=== PATIENT | female | born 1965 | race Caucasian/White ===

== ENCOUNTER 2018-03-03 13:17 | Emergency (ER) | payer OTHER ==
[2018-03-03 13:26] VITALS: BP 131/81; PULSE 89; TEMP 98.4; BMI 28.9
--- NOTE | 2018-03-03 13:56 | PDOC ---
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 The patient states she was removing a glass pitcher from the cabinet when it slipped and shattered on the counter. She reports cutting her hand accidentally on one of the pieces of broken glass. She endorses mild tingling in her distal thumb, index, and middle fingers. Denies decreased movement or pain other than at the site of the laceration. The patient denies recent fevers/chills, dizziness, SOB, N/V/C/D; denies history of DM, HTN, or smoking. 03/03/18 14:04 Past History - Past Medical History Allergies/Adverse Reactions: Allergies Allergy/AdvReac Type Severity Reaction Status Date / Time apple Allergy Verified 03/03/18 13:20 peach Allergy Verified 03/03/18 13:20 pear Allergy Verified 03/03/18 13:20 strawberry Allergy Verified 03/03/18 13:20 Home Medications: Ambulatory Orders Loratadine 10 mg PO TID PRN 03/03/18 COPD: No Other medical history: GUILLIAN BARRE, SEASONAL ALLERGIES - Suicide/Smoking/Psychosocial Hx Smoking History: Never smoked Have you smoked in the past 12 months: No Hx Alcohol Use: No Drug/Substance Use Hx: No Review of Systems - Review of Systems Able to Perform ROS?: Yes Comments:: GENERAL/CONSTITUTIONAL: No fever or chills. No weakness HEAD, EYES, EARS, NOSE AND THROAT: No change in vision. No ear pain or discharge. No sore throat CARDIOVASCULAR: No chest pain or shortness of breath RESPIRATORY: No cough, wheezing, or hemoptysis GASTROINTESTINAL: No nausea, vomiting, diarrhea or constipation GENITOURINARY: No dysuria, frequency, or change in urination MUSCULOSKELETAL: No joint or muscle swelling or pain. No neck or back pain SKIN: per HPI NEUROLOGIC: No headache, vertigo, loss of consciousness ENDOCRINE: No increased thirst. No abnormal weight change HEMATOLOGIC/LYMPHATIC: No anemia, easy bleeding, or history of blood clots ALLERGIC/IMMUNOLOGIC: No hives or skin allergy 03/03/18 13:55 Is the patient limited Chinese proficient: No *Physical Exam - Vital Signs Last Vital Signs Temp Pulse Resp BP Pulse Ox 98.4 F 89 18 131/81 100 03/03/18 13:17 03/03/18 13:17 03/03/18 13:17 03/03/18 13:17 03/03/18 13:17 - Physical Exam Comments: GENERAL: Awake, alert, and fully oriented, in no acute distress HEAD: No signs of trauma, normocephalic, atraumatic EYES: PERRL, EOMI, sclera anicteric, conjunctiva clear ENT: Hearing grossly normal, nares patent, oropharynx clear without exudates. Moist mucosa NECK: Normal ROM, supple LUNGS: No distress, speaks full sentences, clear to auscultation bilaterally HEART:Regular rate and rhythm, normal S1 and S2, no murmurs appreciated, peripheral pulses normal and equal bilaterally ABDOMEN: Soft, nontender, normoactive bowel sounds. No guarding, no rebound. No masses NEUROLOGICAL: Cranial nerves II through XII grossly intact. Normal speech, normal gait, no focal sensorimotor deficits RUE: Inspection: No erythema or ecchymosis. No tenderness, no obvious abnormalities, no open wounds. Compartments soft and compressible, pain within proportion, no pain to passive stretch Sensation: sensation present to light touch m/r/u n Motor: intact AIN/PIN/Ulnar in hand; 5/5 Wrist flex/ext; 5/5 Elbow flex/ext; 5/ 5 Shoulder ABd,Flex Vascular: 2+ radial pulse palpated, BCR all fingers <2 sec. LUE: Inspection: 2cm linear laceration over the thenar eminence (horizontal) without tendon or nerve involvement; No erythema or ecchymosis. Compartments soft and compressible, pain within proportion, no pain to passive stretch Sensation: sensation present to light touch m/r/u n; however reported mild paresthesia at distal thumb, index, and middle fingers since incident Motor: intact AIN/PIN/Ulnar in hand; 5/5 Wrist flex/ext; 5/5 Elbow flex/ext; 5/ 5 Shoulder ABd,Flex Vascular: 2+ radial pulse palpated, BCR all fingers <2 sec. 03/03/18 13:56 Procedures - Laceration/Wound Repair Left Wound Length: to 2.5 cm Wound Explored: clean Wound's Depth, Shape: superficial Irrigated w/ Saline: Yes Anesthesia: 1% Lidocaine Amount of Anesthetic (ccs): 4 Wound Debrided: minimal Wound Repaired With: Sutures Suture Size/Type: 5:0 Number of Sutures: 4 Layer Closure: No Sterile Dressing Applied: Yes Progress: Indication: Laceration Beading Installer: Vinicius Winn MD Indications, risks, and benefits explained to patient and verbal informed consent obtained. Laceration location & length: 2cm Anesthesia was performed with 1% lidocaine with epinephrine. The wound was irrigated with 100cc of NS under pressure. The patient was prepped and draped in usual fashion. Repair type: Simple: repair involving routine debridement & decontamination, simple one layer closure, superficial tissues, 4 5-0 sutures, total length of several repairs in same code category. 03/03/18 14:11 Medical Decision Making - Medical Decision Making The patient is a 52F who presents for evaluation with a 2cm linear laceration to her left thenar eminece ED Course Laceration repaired per procedure note Patient given wound care instructions and told to return in 7-10 days for suture removal Patient given return precautions Patient verbalized understanding and is in agreement Dispo: Home 03/03/18 14:49 *DC/Admit/Observation/Transfer Diagnosis at time of Disposition: Laceration - Discharge Dispostion Disposition: HOME Condition at time of disposition: Improved Decision to Admit order: No - Referrals - Patient Instructions Printed Discharge Instructions: DI for Laceration Repair Additional Instructions: You were seen today for a laceration to your hand. Please review the handout provided at discharge. Please return in 7-10 days for suture removal. Be sure to wash the wound every day with soap and running water. Pat dry. You may leave the wound open to air. Return to the Emergency Room if you develop fevers, notice wound redness, purulent drainage, increased pain, or any new/concerning symptoms. - Post Discharge Activity
--- NOTE | 2018-03-03 14:48 | PDOC ---
Attending Attestation - Resident Resident Name: Vinicius Winn - ED Attending Attestation I have performed the following: I have examined & evaluated the patient, The case was reviewed & discussed with the resident, I agree w/resident's findings & plan - HPI HPI: 03/03/18 14:39 52y/o F h/o GBS p/w L palm laceration from broken glass vase. No motor or sensory deficits. 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 - Physicial Exam PE: 03/03/18 14:48 VSS, well appearing and ambulating linear laceration to palmar aspect over L 1st metacarpal, 5/5 flex/extend MCP/ IP. brisk cap refill - Medical Decision Making 03/03/18 14:49 52y/o F with palm laceration from broken glass, no motor/sensory deficit. xray r/o foreign body lac repair per resident note. tolerated well, approximated well, remains nvi wound care precautions, understands return criteria
== END 2018-03-03 15:05 | disposition home or self-care (01) ==
LOC: FER 13:17
PROC: 0HQGXZZ Repair Left Hand Skin, External Approach (ICD-10-PCS; principal; 2018-03-03)
DX: S61.412A Laceration without foreign body of left hand, initial encounter (principal); W25.XXXA Contact with sharp glass, initial encounter; Y93.89 Activity, other specified; Y92.009 Unspecified place in unspecified non-institutional (private) residence as the place of occurrence of the external cause
CPT/HCPCS: 73130-TC-LR-FY; 99284-25

== ENCOUNTER 2018-03-11 11:34 | Emergency (ER) | payer OTHER ==
--- NOTE | 2018-03-11 11:50 | PDOC ---
Attending Attestation - Resident Resident Name: Marta Medina - ED Attending Attestation I have performed the following: I have examined & evaluated the patient, The case was reviewed & discussed with the resident, I agree w/resident's findings & plan, Exceptions are as noted - HPI HPI: 03/11/18 12:16 Ms Clark is a 52 yo RHD F presenting to the ER with a complaint of left hand pain s/p laceration and suture repair Laceration repaired 8 days ago Post repair, pt noted swelling and pain Was seen at OSH where abx were initiated Pt has seen the hand surgeon given persistent pain and limited range of motion hand surgeon requested that she continue abx and come to the ER for suture removal No fevers or chills No drainage Range of motion limited by pain - Physicial Exam PE: 03/11/18 12:17 Pt is awake and alert Left hand laceration noted well approximated No erythema or drainage sensation in tact Pain with thumb movement 2+ RP, 2+ UP sensation in tact - Medical Decision Making 03/11/18 12:18 Prior Xray revealed no radioopaque foreign body No signs of cellulitis currently taking Keflex Pt has follow up with hand specialist in 5 DAYS tylenol #3 ordered for severe pain Return precautions given - fevers, redness, drainage, more pain, inability to keep follow up appt
[2018-03-11 12:07] VITALS: BP 107/95; PULSE 63; TEMP 97.8; BMI 29.0
--- NOTE | 2018-03-11 12:12 | PDOC ---
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 Patient initially presented on 03/03/18 ( eight days ago) for 2cm laceration on the thenar eminence of the left hand. She received four sutures. Reports tenderness, redness, and swelling surrounding the area of injury for which she presented to [facility] ED on Wednesday (two days ago) and was prescribed Keflex. Patient also saw a hand specialist on that day who recommended follow-up in one week. Redness and swelling have decreased but she continues to have pain in her hand and forearm. Denies red streaking, discharge, or fluctuance. Denies fever, chills, chest pain, shortness of breath , or abdominal pain. Past History - Past Medical History Allergies/Adverse Reactions: Allergies Allergy/AdvReac Type Severity Reaction Status Date / Time apple Allergy Verified 03/11/18 11:56 peach Allergy Verified 03/11/18 11:56 pear Allergy Verified 03/11/18 11:56 strawberry Allergy Verified 03/11/18 11:56 Home Medications: Ambulatory Orders Loratadine 10 mg PO DAILY PRN 03/03/18 Acetaminophen W/ Codeine #3 [Tylenol # 3 -] 1 tab PO TID PRN #15 tablet MDD 3 Albuterol Sulfate Inhaler - [Ventolin Hfa Inhaler -] 1 - 2 inh PO QID PRN Cephalexin [Keflex] 500 mg PO TID 03/11/18 Asthma: Yes COPD: No - Suicide/Smoking/Psychosocial Hx Smoking History: Never smoked Have you smoked in the past 12 months: No Hx Alcohol Use: No Drug/Substance Use Hx: No Substance Use Type: None *Review of Systems - Review of Systems Comments:: Constitutional: no fever, no chills Cardiovascular: no chest pain Respiratory: no shortness of breath Gastrointestinal: no abdominal pain, no nausea, no vomiting Skin: no rash, no itching Neurologic: no headache, no dizziness *Physical Exam - Vital Signs Last Vital Signs Temp Pulse Resp BP Pulse Ox 97.8 F 63 18 107/95 99 03/11/18 11:37 03/11/18 11:37 03/11/18 11:37 03/11/18 11:37 03/11/18 11:37 - Physical Exam Comments: General: Awake, alert, and fully oriented, in no acute distress Head: no signs of trauma Eyes: EOMI, sclera anicteric ENT: Moist mucus membranes Neck: Normal ROM, supple Lungs: Lungs clear, Normal breath sounds Cardio: Regular rhythm, S1 and S2 present Abdomen: Soft, nontender Extremities: Distal pulses present, well-healing 2cm linear laceration on thenar eminance of left hand, decreased sensation on distal left thumb, motion limited by pain Neurologic: Cranial nerves II through XII grossly intact. Normal speech Medical Decision Making - Medical Decision Making 52yo F presenting for suture removal. -Four sutures removed. Wound edges well approximated. Patient tolerated procedure well. -Tylenol #3 sent to pharmacy -Patient will follow-up with hand specialist on Wednesday. 03/11/18 12:19 *DC/Admit/Observation/Transfer Diagnosis at time of Disposition: Visit for suture removal - Discharge Dispostion Disposition: HOME Condition at time of disposition: Stable - Prescriptions Prescriptions: Acetaminophen W/ Codeine #3 [Tylenol # 3 -] 1 tab PO TID PRN #15 tablet MDD 3 PRN Reason: Pain - Referrals - Patient Instructions Printed Discharge Instructions: DI for Suture Removal Additional Instructions: You came to the emergency department for suture removal. Follow-up with the hand specialist on Wednesday. Prescription sent to your pharmacy. Contact your doctor if your recovery is not progressing as expected or if you develop complications such as: -Redness or hardness around the wound -Pain or tenderness -Warmth, swelling -A red streak -Yellow or green discharge (pus) oozing from the wound -Fever or chills In case of an emergency, call for emergency medical help right away. - Post Discharge Activity
== END 2018-03-11 12:32 | disposition home or self-care (01) ==
LOC: FER 11:34
DX: Z48.02 Encounter for removal of sutures (principal)
CPT/HCPCS: 99281-25